=== PATIENT | male | born 1990 | race Caucasian/White ===

== ENCOUNTER 2018-08-06 19:55 | Emergency (ER) | payer OTHER ==
[~2018-08-06] VITALS: Ht 193 cm; Wt 103.0 kg
[2018-08-06] MEDS ORDERED: ASPI-515 PO (20:01)
[2018-08-06 22:32] VITALS: BP 119/60
[2018-08-13] MEDS ORDERED: ASPI-650 PO (18:00)
== END 2018-08-06 22:34 | disposition home or self-care (01) ==
LOC: ED 20:04
DX: S16.1XXA Strain of muscle, fascia and tendon at neck level, initial encounter (principal); R07.89 Other chest pain; V49.09XA Driver injured in collision with other motor vehicles in nontraffic accident, initial encounter; Y93.89 Activity, other specified; Y92.89 Other specified places as the place of occurrence of the external cause; Y99.8 Other external cause status
CPT/HCPCS: 71046; 72125; 93005; 99284